=== PATIENT | female | born 1940 | race Caucasian/White ===

== ENCOUNTER 2017-12-22 11:46 | Inpatient (IN) ==
[2017-12-22 12:19] LABS: Baso # (Auto) 0.1 th/mm3 (0.0-0.2); Baso % (Auto) 0.5 % (0.0-2.0); Eos # (Auto) 0.1 th/mm3 (0.0-0.4); Eos % (Auto) 0.7 % (0.0-4.0); Hematocrit 39.7 % (35.0-46.0); Hemoglobin 12.7 gm/dL (11.6-15.3); Lymph # (Auto) 1.5 th/mm3 (1.0-4.8); Mean Corpuscular Volume 93.8 fL (80.0-100.0); Mean Platelet Volume 10.1 fL (7.0-11.0); Mono # (Auto) 0.4 th/mm3 (0.0-0.9); Mono % (Auto) 3.9 % (0.0-8.0); Neut # (Auto) 8.9 th/mm3 (1.8-7.7); Neut % (Auto) 80.9 % (16.0-70.0); Platelet Count 265 th/mm3 (150-450); Red Blood Count 4.23 mil/mm3 (4.00-5.30); Red Cell Distribution Width 14.1 % (11.6-17.2)
[2017-12-22 12:35] LABS: Activated Partial Thrombo Time 25.2 sec (24.3-30.1); Prothrombin Time 10.2 sec (9.8-11.6)
[2017-12-22 12:36] LABS: Calcium 8.4 mg/dL (8.5-10.1); Carbon Dioxide 27.8 meq/L (21.0-32.0); Potassium 4.4 meq/L (3.5-5.1)
--- NOTE | 2017-12-22 12:51 | XR ---
EXAM DATE: 12/22/2017 12:49 PM EDT AGE/SEX: 89 years / Female INDICATIONS: Trauma. CLINICAL DATA: This is the patient's initial encounter. Patient reports that signs and symptoms have been present for 1 day and indicates a pain score of Nonresponsive. MEDICAL/SURGICAL HISTORY: Non-responsive. Non-responsive. COMPARISON: No prior exams available for comparison. FINDINGS: A single AP view of the chest demonstrates the lungs to be symmetrically aerated without evidence of mass, infiltrate or effusion. The cardiomediastinal contours are unremarkable. Osseous structures a re intact. CONCLUSION: Negative examination. Electronically signed by: Samson Griffin MD 12/22/2017 12:50 PM EDT
--- NOTE | 2017-12-22 12:57 | ED ---
HPI General Chief Complaint: Fall Stated Complaint: Fall Time Seen by Provider: 12/22/17 11:57 Source: patient, EMS, RN notes reviewed and old records reviewed Mode of arrival: EMS Limitations: other (dementia) History of Present Illness HPI Narrative: Patient presents by ambulance with history of dementia and underlying GCS of 14 on hospice after she had a fall [place]. She did not hit her head or blackout. She has a large hematoma to that area and was hypotensive in route. Patient denies any complaints but is a very poor historian. complaint: fall Onset (ago): hour(s) Fall from: standing Fall witnessed: yes, by family Place fall occurred: home Loss of consciousness: none Prolonged down time: no Symptoms prior to fall: none Location of injury: back Related Data Allergies Allergy/AdvReac Type Severity Reaction Status Date / Time Penicillins Allergy Unknown unknown Verified 12/22/17 11:58 Review of Systems ROS Unobtainable ROS Unobtainable: other (dementia, poor historian) FOR[facility]LY [facility] Medical History Medical History Alzheimer disease (Acute) Hypothyroidism (Acute) Surgical History Surgical History History of splenectomy (Acute) Social History Social History Substance History: Unable to Obtain Smoking Status: Unknown if ever smoked How Often Do You Have a Drink Containing Alcohol: Unable to Obtain Recent Travel in [facility] within the Last 8 Weeks: No Recent Out of Country Travel within the Last 8 Weeks: No Immunization History Tetanus Immunization: Unable to Assess Hx Influenza Vaccine This Season: Unable to Assess Exam Narrative Exam Narrative: GENERAL: in no apparent distress SKIN: Focused skin assessment warm/dry. HEAD: Atraumatic. Normocephalic. EYES: Pupils equal and round. No scleral icterus. No injection or drainage. ENT: No nasal bleeding or discharge. Mucous membranes pink and moist. NECK: Trachea midline. CARDIOVASCULAR: Regular rate and rhythm. RESPIRATORY: No accessory muscle use. Clear to auscultation. Breath sounds equal bilaterally. GASTROINTESTINAL: Abdomen soft, non-tender, nondistended. MUSCULOSKELETAL: No obvious deformities. No clubbing. No cyanosis. NEUROLOGICAL: Awake. moves all extremities. Normal speech. Back: To left flank area there is a large hematoma noted, no midline pain Course Reevaluation(s) Reevaluation #1: on recheck vitals stable, will discuss with trauma surgery Reevaluation #2: patient's at bedside and states that he wants her observed in the hospital and have her hemoglobins monitored. Consultations Consultation #1: dr belle will see patient Consultation #2: dr belle states to admit to icu for monitoring, no IR at this time Initial Documented Vital Signs Temperature 97.6 F 12/22/17 11:52 Pulse Rate 71 12/22/17 11:52 Respiratory Rate 18 12/22/17 11:52 Blood Pressure 137/65 12/22/17 11:52 Pulse Oximetry 92 L 12/22/17 11:52 Last Documented Vital Signs Temperature 97.6 F 12/22/17 12:00 Pulse Rate 71 12/22/17 12:00 Respiratory Rate 18 12/22/17 12:00 Blood Pressure 137/65 12/22/17 12:00 Pulse Oximetry 92 L 12/22/17 12:00 Medical Decision Making MDM Narrative Medical decision making narrative: Will check blood work and imaging to rule out other process and reevaluate Medical Screen Exam Complete: Yes Emergency Medical Condition: Yes Differential Diagnosis Differential Diagnosis: Hematoma, fracture, pneumothorax Lab Data Lab results reviewed: Yes I reviewed the patient's lab results. Result diagrams: 12/22/17 12:05 12/22/17 12:05 Lab Results 12/22/17 12/22/17 12/22/17 Range/Units 12:05 12:05 12:05 WBC 11.0 (4.0-11.0) th/mm3 RBC 4.23 (4.00-5.30) mil/mm3 Hgb 12.7 (11.6-15.3) gm/dL Hct 39.7 (35.0-46.0) % MCV 93.8 (80.0-100.0) fL MCH 30.0 (27.0-34.0) pg MCHC 32.0 (32.0-36.0) % RDW 14.1 (11.6-17.2) % Plt Count 265 (150-450) th/mm3 MPV 10.1 (7.0-11.0) fL Neut % (Auto) 80.9 H (16.0-70.0) % Lymph % (Auto) 14.0 (9.0-44.0) % [place] % (Auto) 3.9 (0.0-8.0) % Eos % (Auto) 0.7 (0.0-4.0) % Baso % (Auto) 0.5 (0.0-2.0) % Neut # (Auto) 8.9 H (1.8-7.7) th/mm3 Lymph # (Auto) 1.5 (1.0-4.8) th/mm3 [place] # (Auto) 0.4 (0.0-0.9) th/mm3 Eos # (Auto) 0.1 (0.0-0.4) th/mm3 Baso # (Auto) 0.1 (0.0-0.2) th/mm3 WBC Differential . Differential Comment Auto diff final PT 10.2 (9.8-11.6) sec INR 1.0 Ratio APTT 25.2 (24.3-30.1) sec Sodium 145 (136-145) meq/L Potassium 4.4 (3.5-5.1) meq/L Chloride 109 H (98-107) meq/L Carbon Dioxide 27.8 (21.0-32.0) meq/L Anion Gap 8 (5-15) meq/L BUN 19 H (7-18) mg/dL Creatinine 1.05 H (0.50-1.00) mg/dL Estimated GFR 45 L (>89) mL/min Random Glucose 160 H (74-106) mg/dL Calcium 8.4 L (8.5-10.1) mg/dL Blood Type Antibody Screen 12/22/17 Range/Units 12:35 WBC (4.0-11.0) th/mm3 RBC (4.00-5.30) mil/mm3 Hgb (11.6-15.3) gm/dL Hct (35.0-46.0) % MCV (80.0-100.0) fL MCH (27.0-34.0) pg MCHC (32.0-36.0) % RDW (11.6-17.2) % Plt Count (150-450) th/mm3 MPV (7.0-11.0) fL Neut % (Auto) (16.0-70.0) % Lymph % (Auto) (9.0-44.0) % [place] % (Auto) (0.0-8.0) % Eos % (Auto) (0.0-4.0) % Baso % (Auto) (0.0-2.0) % Neut # (Auto) (1.8-7.7) th/mm3 Lymph # (Auto) (1.0-4.8) th/mm3 [place] # (Auto) (0.0-0.9) th/mm3 Eos # (Auto) (0.0-0.4) th/mm3 Baso # (Auto) (0.0-0.2) th/mm3 WBC Differential Differential Comment PT (9.8-11.6) sec INR Ratio APTT (24.3-30.1) sec Sodium (136-145) meq/L Potassium (3.5-5.1) meq/L Chloride (98-107) meq/L Carbon Dioxide (21.0-32.0) meq/L Anion Gap (5-15) meq/L BUN (7-18) mg/dL Creatinine (0.50-1.00) mg/dL Estimated GFR (>89) mL/min Random Glucose (74-106) mg/dL Calcium (8.5-10.1) mg/dL Blood Type O Positive Antibody Screen Negative Imaging Data Attestation: I personally reviewed and interpreted this imaging study as follows : Radiologist's impression: Abdomen/Pelvis CT 12/22/17 11:58 CONCLUSION: 1. Flank subcutaneous hematoma with surrounding edema, and active contrast extravasation within the hematoma noted. 2. Hiatal hernia. 3. Diverticulosis. 4. Fat and small bowel containing umbilical hernia. Chest X-Ray 12/22/17 11:58 CONCLUSION: Negative examination. Chest CT 12/22/17 11:59 CONCLUSION: 1. Small pericardial effusion and mild dependent atelectasis at the left lung base. Discharge Plan Discharge Disposition Patient Disposition: 30 Still Patient Discharge Condition Condition: Stable Discharge Details Diagnosis: Hematoma of flank Physicians Team ED Provider: Millie Silva Primary Care Provider: Misty Feliz Interventions Interventions: Vital Signs Last Done: 12/22/17 12:00 Status ED Status: Admitted Patient
--- NOTE | 2017-12-22 13:25 | CT ---
EXAM DATE: 12/22/2017 1:15 PM EDT AGE/SEX: 89 years / Female INDICATIONS: Trauma, fall. Hematoma to left lower back. CLINICAL DATA: This is the patient's initial encounter. Patient reports that signs and symptoms have been present for 1 day and indicates a pain score of 4/10. MEDICAL/SURGICAL HISTORY: Alzheimer's disease. Hypothyroidism. Splenectomy. ORAL CONTRAST: No oral contrast ingested. RADIATION DOSE: 20.27 CTDI (mGy) ; Combined studies COMPARISON: No prior exams available for comparison. TECHNIQUE: Multiple contiguous axial images were obtained through the abdomen and pelvis following b olus infusion of 95 ml Omnipaque 350 (iohexol) nonionic water-soluble contrast as a cumulative dose for multiple exams. No oral contrast ingested. Using automated exposure control and adjustment of t he mA and/or kV according to patient size, radiation dose was kept as low as reasonably achievable to obtain optimal diagnostic quality images. DICOM format image data is available electronically for r eview and comparison. FINDINGS: No pleural or pericardial effusions are seen. Small hiatal hernia. Liver, gallbladder, adrenal glands are within normal limits. Patient has a history of splenectomy, with a regenerative nodule in the le ft upper quadrant measuring 2.7 cm. Lung bases are clear. The osseous structures demonstrate degenera tive changes of the spine. There is a umbilical hernia containing fat and small bowel loops. Urinary bladder is unremarkable. The patient is status post hysterectomy. There is moderate diverticulosis of the sigmoid and descending colon. There is a hematoma with active contrast extravasation the left fl ank subcutaneous fat with surrounding edema, posterior to the midpole level of the left kidney. The h ematoma measures 10.9 x 5.6 cm in transverse and AP dimension. CONCLUSION: 1. Flank subcutaneous hematoma with surrounding edema, and active contrast extravasation within the hematoma noted. 2. Hiatal hernia. 3. Diverticulosis. 4. Fat and small bowel containing umbilical hernia. Electronically signed by: Ezekiel Lr MD 12/22/2017 1:23 PM EDT
--- NOTE | 2017-12-22 13:27 | CT ---
EXAM DATE: 12/22/2017 1:17 PM EDT AGE/SEX: 89 years / Female INDICATIONS: Trauma, fall. Hematoma to left lower back. CLINICAL DATA: This is the patient's initial encounter. Patient reports that signs and symptoms have been present for 1 day and indicates a pain score of 4/10. MEDICAL/SURGICAL HISTORY: Alzheimer's disease. Hypothyroidism. Splenectomy. RADIATION DOSE: 20.27 CTDI (mGy) ; Combined studies [place] [facility] [place] [facility] [place]EL[place]AST[place] 12/22/2017. . TECHNIQUE: Multiple contiguous axial images were obtained through the chest during bolus infusion of 95 ml Omnipaque 350 (iohexol) nonionic water-soluble contrast as a cumulative dose for multiple exa ms. Images were obtained in suspended respiration using multiple row detector helical technique. U sing automated exposure control and adjustment of the mA and/or kV according to patient size, radiati on dose was kept as low as reasonably achievable to obtain optimal diagnostic quality images. DICOM format image data is available electronically for review and comparison. FINDINGS: The lungs are clear. Review of bone windows demonstrate degenerative changes of the spine. A small pe ricardial effusion is present. No pleural effusion. There is atelectasis seen at the left lung base. Small hiatal hernia. CONCLUSION: 1. Small pericardial effusion and mild dependent atelectasis at the left lung base. Electronically signed by: Ezekiel Lr MD 12/22/2017 1:26 PM EDT
[2017-12-22] MEDS ORDERED: Morphine Sulfate Inj 2 MG/ML Vial IV.PUSH PRN (14:28)
--- NOTE | 2017-12-22 14:57 | P.HPGS ---
History of Present Illness Primary Care Physician: Misty Feliz MD History of Present Illness: 87 y.o female with baseline dementia on hospice care-fell and hurt her left flank-she has a large hematoma with active extravasation-she is hemodynamically normal,neuro intact. Inpatient Certification: I certify that the inpatient services were ordered in accordance with Medicare regulations governing the order. This includes certification that hospital inpatient services are reasonable and necessary and in the case of services not specified as inpatient-only under 42 CFR 419.22(n), that they are appropriately provided as inpatient services in accordance to with the 2-midnight benchmark under 43 CFR 412.3(e) Estimated Total Length of Stay (Days): 2 Plans for Post Hospital Care: Home Review of Systems All other systems reviewed negative except as stated in HPI PMFSH - History History Provided By: Split [employer]ather Department Supervisor / EMT - Medical History Medical History: Medical History (Last Reviewed 12/22/17 @ 12:56 by Millie Silva MD) Alzheimer disease Hypothyroidism - Surgical History Surgical History: Surgical History (Last Reviewed 12/22/17 @ 12:56 by Millie Silva MD) History of splenectomy - Tobacco History Smoking Status: Unknown if ever smoked - Alcohol History How Often Do You Have a Drink Containing Alcohol: Unable to Obtain - Substance Use History Substance History: Unable to Obtain - Travel History Recent Travel in the [place] Within the Last 8 Weeks: No Recent Travel Out of the Country Within the Last 8 Weeks: No - Immunization History Tetanus Immunization: Unable to Assess Hx Influenza Vaccine This Season: Unable to Assess Medications and Allergies Active Medications: Active Medications Chlorhexidine Gluconate (Chlorhexidine 2% Cloth) 3 pack TOPICAL DAILY@0400 GAY Stop: 12/28/17 03:59 Chlorhexidine Gluconate (Chlorhexidine 2% Cloth) 3 pack TOPICAL DAILY@0400 PRN PRN Reason: Extra cloth needed Stop: 12/28/17 03:59 Sodium Chloride (Ns Inj) 1,000 mls @ 84 mls/hr IV.CONT .[id number] GAY Morphine Sulfate (Morphine Inj) 2 mg IV.PUSH Q3H PRN PRN Reason: PAIN SCALE 6 TO 10 Ondansetron HCl (Zofran Inj) 4 mg IV.PUSH Q6H PRN PRN Reason: NAUSEA OR VOMITING Senna/Docusate Sodium (Esha-Colace) 1 tab PO BID GAY Sodium Chloride (Ns Flush) 2 ml IV.FLUSH PRN PRN PRN Reason: FLUSH AFTER USING IV ACCESS Sodium Chloride (Ns Flush) 2 ml IV.FLUSH BID GAY Sodium Chloride (Ns Flush) 2 ml IV.FLUSH PRN PRN PRN Reason: FLUSH AFTER USING IV ACCESS Allergies Allergy/AdvReac Type Severity Reaction Status Date / Time Penicillins Allergy Unknown unknown Verified 12/22/17 11:58 Exam Vital signs: Vital Signs 12/22/17 11:52 12/22/17 12:00 Temperature 97.6 F 97.6 F Pulse Rate 71 71 Respiratory Rate 18 18 Blood Pressure 137/65 137/65 Pulse Oximetry 92 L 92 L Intake & Output 12/21/17 12/22/17 12/22/17 18:59 06:59 18:59 Weight 81.647 kg - Constitutional no acute distress - Routine HEENT Exam Head: Present: normocephalic, atraumatic Eye: Present: EOMI, PERRL ENT: Present: mucous membranes moist, oropharynx clear - Routine Neck Exam Present: supple, full ROM - Routine Respiratory Exam Present: CTA bilaterally - Routine Cardiovascular Exam Present: RRR - Routine Abdominal Exam Present: soft, normoactive bowel sounds Comments: left flank hematoma about 10x10 cm - Routine Extremities Exam Present: full ROM, pulses intact - Routine Neurological Exam Present: alert, altered mental status, moving all extremities Caprini VTE Risk Assessment Caprini VTE Risk Assessment: Moderate/High Risk (score >= 2) (active bleeding) Caprini Risk Assessment Model: Point Value = 1 Point Value = 2 Point Value = 3 Point Value = 5 Age 41-60 Minor surgery BMI > 25 kg/m2 Swollen legs Varicose veins or History of unexplained or recurrent spontaneous Oral contraceptives or hormone replacement Sepsis (< 1 month) Serious lung disease, including pneumonia (< 1 month) Abnormal pulmonary function Acute myocardial infarction Congestive heart failure (< 1 month) History of inflammatory bowel disease Medical patient at bed rest Age 61-74 Arthroscopic surgery Major open surgery (> 45 min) Laparoscopic surgery (> 45 min) Malignancy Confined to bed (> 72 hours) Immobilizing plaster cast Central venous access Age >= 75 History of VTE Family history of VTE Factor V Leiden Prothrombin [id number] Lupus anticoagulant Anticardiolipin antibodies Elevated serum homocysteine Heparin-induced thrombocytopenia Other congenital or acquired thrombophilia Stroke (< 1 month) Elective arthroplasty Hip, pelvis, or leg fracture Acute spinal cord injury (< 1 month) Prophylaxis Regimen: Total Risk Factor Score Risk Level Prophylaxis Regimen 0-1 Low Early ambulation 2 Moderate Order ONE of the following: *Sequential Compression Device (SCD) *Heparin 5000 units SQ BID 3-4 Higher Order ONE of the following medications: *Heparin 5000 units SQ TID *Enoxaparin/Lovenox 40 mg SQ daily (WT < 150 kg, CrCl > 30 mL/min) *Enoxaparin/Lovenox 30 mg SQ daily (WT < 150 kg, CrCl > 10-29 mL/min) *Enoxaparin/Lovenox 30 mg SQ BID (WT < 150 kg, CrCl > 30 mL/min) AND/OR *Sequential Compression Device (SCD) 5 or more Highest Order ONE of the following medications: *Heparin 5000 units SQ TID (Preferred with Epidurals) *Enoxaparin/Lovenox 40 mg SQ daily (WT < 150 kg, CrCl > 30 mL/min) *Enoxaparin/Lovenox 30 mg SQ daily (WT < 150 kg, CrCl > 10-29 mL/min) *Enoxaparin/Lovenox 30 mg SQ BID (WT < 150 kg, CrCl > 30 mL/min) AND *Sequential Compression Device (SCD) Assessment and Plan - Plan left flank soft tissue hematoma with active bleeding admit to [facility] cbc abdominal binder
[2017-12-22] MEDS: Sod Chloride 0.9% Inj 1,000 ML IV.CONT SCH (18:52)
[2017-12-22] MEDS: Senna/Docusate Sodium 8.6/50 MG Tablet PO SCH (21:00)
[2017-12-22 21:56] LABS: Hematocrit 31.1 % (35.0-46.0); Hemoglobin 10.6 gm/dL (11.6-15.3); Mean Corpuscular HGB Conc 34.1 % (32.0-36.0); Platelet Count 238 th/mm3 (150-450); Red Blood Count 3.42 mil/mm3 (4.00-5.30); Red Cell Distribution Width 13.9 % (11.6-17.2); White Blood Count 9.5 th/mm3 (4.0-11.0)
[2017-12-23] MEDS ORDERED: Chlorhexidine Gluconate 2% 1 Pack (2 Cloths) TOPICAL PRN (04:00)
[2017-12-23] MEDS ORDERED: Chlorhexidine Gluconate 2% 1 Pack (2 Cloths) TOPICAL SCH (04:00)
[2017-12-23] MEDS: Sod Chloride 0.9% Inj 1,000 ML IV.CONT SCH (04:43)
[2017-12-23 05:38] LABS: Baso # (Auto) 0.1 th/mm3 (0.0-0.2); Baso % (Auto) 0.7 % (0.0-2.0); Eos % (Auto) 0.1 % (0.0-4.0); Hemoglobin 10.1 gm/dL (11.6-15.3); Lymph # (Auto) 2.5 th/mm3 (1.0-4.8); Lymph % (Auto) 30.7 % (9.0-44.0); Mean Corpuscular HGB Conc 33.6 % (32.0-36.0); Mean Corpuscular Hemoglobin 30.7 pg (27.0-34.0); Mean Corpuscular Volume 91.2 fL (80.0-100.0); Mean Platelet Volume 10.4 fL (7.0-11.0); Mono # (Auto) 0.8 th/mm3 (0.0-0.9); Mono % (Auto) 9.3 % (0.0-8.0); Neut # (Auto) 4.8 th/mm3 (1.8-7.7); Neut % (Auto) 59.2 % (16.0-70.0); Platelet Count 219 th/mm3 (150-450); Red Blood Count 3.29 mil/mm3 (4.00-5.30); Red Cell Distribution Width 13.9 % (11.6-17.2); White Blood Count 8.1 th/mm3 (4.0-11.0)
[2017-12-23 05:58] LABS: Calcium 7.6 mg/dL (8.5-10.1); Carbon Dioxide 24.6 meq/L (21.0-32.0); Potassium 4.1 meq/L (3.5-5.1)
[2017-12-23] MEDS ORDERED: Acetaminophen 325 MG Tablet PO PRN (06:32)
[2017-12-23] MEDS ORDERED: Non-Formulary Drug (Coenzyme Q10 [Co Q-10] 200 MG) PO SCH (09:00)
[2017-12-23] MEDS ORDERED: Citalopram 20 MG Tablet PO SCH (09:00)
[2017-12-23] MEDS ORDERED: Levothyroxine 50 MCG Tablet PO SCH (09:00)
[2017-12-23] MEDS: Senna/Docusate Sodium 8.6/50 MG Tablet PO SCH (09:58)
--- NOTE | 2017-12-23 11:27 | P.DS ---
Date of admission: 12/22/17 14:24 Primary care physician: Misty Feliz MD Brief History from admission: 87 y.o female with baseline dementia on hospice care-fell and hurt her left flank-she has a large hematoma with active extravasation-she is hemodynamically normal,neuro intact. DS: Diagnosis - Discharge Diagnosis (1) Fall Status: Acute (2) Hematoma of flank Status: Acute DS: Summary Hospital Course: INJURIES: LEFT flank hematoma w/ active bleeding PMHx: Dementia- on hospice, hypothyroidism LEFT flank hematoma Supportive care Hgb stable Pain control Clear to DC back home with daily Hospice care Plan of care d/w at bedside. agreeable to take patient back home today with Hospice. Hospice consulted. Collaborating Trauma MD agrees with plan. Patient is clear from Trauma surgery standpoint to safely DC home with hospice. - Time Spent with Patient Total time spent providing and/or coordinating discharge services: Greater than 30 minutes - Quality: VTE Deep Vein Thrombosis/Pulmonary Embolism Present on Admission: No Exam Vital signs: Vital Signs 12/22/17 11:52 12/22/17 12:00 12/22/17 18:53 Temperature 97.6 F 97.6 F Pulse Rate 71 71 98 H Respiratory Rate 18 18 18 Blood Pressure 137/65 137/65 141/67 H Pulse Oximetry 92 L 92 L 12/22/17 21:30 12/23/17 00:30 12/23/17 03:30 Temperature Pulse Rate 90 90 86 Respiratory Rate 16 16 16 Blood Pressure 143/63 H 134/67 144/77 H Pulse Oximetry 96 95 95 12/23/17 06:09 12/23/17 06:45 12/23/17 08:00 Temperature 98.6 F 99.1 F Pulse Rate 84 80 82 Respiratory Rate 14 18 Blood Pressure 136/74 171/72 H 161/79 H Pulse Oximetry 94 L 94 L 95 12/23/17 09:00 12/23/17 10:00 Temperature Pulse Rate 84 87 Respiratory Rate Blood Pressure Pulse Oximetry Intake & Output 12/22/17 12/23/17 12/23/17 18:59 06:59 18:59 Intake Total 1000 / 1000 Balance 1000 / 1000 Weight 81.647 kg 81.64 kg Intake: IV 1000 / 1000 NS Inj 1,000 ML @ 84 mls/hr IV. 1000 / 1000 CONT .[id number] [facility] Rx#:[id number] Other: Weight On Admission 81.64 kg Narrative: GENERAL: Adult confused female lying in bed in no acute distress. SKIN: Warm and dry. LEFT flank hematoma noted, tender to palpation. HEAD: Normocephalic. EYES: Pupils equal and round. No scleral icterus. ENT: No nasal bleeding or discharge. Mucous membranes pink and moist. NECK: Trachea midline. No JVD. CARDIOVASCULAR: Regular rate and rhythm. RESPIRATORY: No accessory muscle use. Lungs clear to auscultation. Breath sounds equal bilaterally. On RA. GASTROINTESTINAL: Abdomen soft, non-tender, nondistended. + BS. MUSCULOSKELETAL: Extremities without cyanosis, or edema. MAEW, + perfused NEUROLOGICAL: Alert and confused. Normal speech. Results Procedures completed during hospitalization: . Labs on day of discharge: Labs from last 24 hours 12/23/17 12/23/17 12/23/17 06:30 05:05 05:05 WBC 8.1 RBC 3.29 L Hgb 10.1 L Hct 30.0 L MCV 91.2 MCH 30.7 MCHC 33.6 RDW 13.9 Plt Count 219 MPV 10.4 Neut % (Auto) 59.2 Lymph % (Auto) 30.7 [place] % (Auto) 9.3 H Eos % (Auto) 0.1 Baso % (Auto) 0.7 Neut # (Auto) 4.8 Lymph # (Auto) 2.5 [place] # (Auto) 0.8 Eos # (Auto) 0.0 Baso # (Auto) 0.1 WBC Differential . Differential Comment Auto diff final PT INR APTT Sodium 146 H Potassium 4.1 Chloride 110 H Carbon Dioxide 24.6 Anion Gap 11 BUN 18 Creatinine 1.06 H Estimated GFR 45 L Random Glucose 128 H Calcium 7.6 L D Nasal Screen MRSA (PCR) Pending Blood Type Antibody Screen 12/22/17 12/22/17 12/22/17 21:50 12:35 12:05 WBC 9.5 RBC 3.42 L Hgb 10.6 L D Hct 31.1 L MCV 91.0 MCH 31.0 MCHC 34.1 RDW 13.9 Plt Count 238 MPV 10.0 Neut % (Auto) Lymph % (Auto) [place] % (Auto) Eos % (Auto) Baso % (Auto) Neut # (Auto) Lymph # (Auto) [place] # (Auto) Eos # (Auto) Baso # (Auto) WBC Differential Differential Comment PT INR APTT Sodium 145 Potassium 4.4 Chloride 109 H Carbon Dioxide 27.8 Anion Gap 8 BUN 19 H Creatinine 1.05 H Estimated GFR 45 L Random Glucose 160 H Calcium 8.4 L Nasal Screen MRSA (PCR) Blood Type O Positive Antibody Screen Negative 12/22/17 12/22/17 12:05 12:05 WBC 11.0 RBC 4.23 Hgb 12.7 Hct 39.7 MCV 93.8 MCH 30.0 MCHC 32.0 RDW 14.1 Plt Count 265 MPV 10.1 Neut % (Auto) 80.9 H Lymph % (Auto) 14.0 [place] % (Auto) 3.9 Eos % (Auto) 0.7 Baso % (Auto) 0.5 Neut # (Auto) 8.9 H Lymph # (Auto) 1.5 [place] # (Auto) 0.4 Eos # (Auto) 0.1 Baso # (Auto) 0.1 WBC Differential . Differential Comment Auto diff final PT 10.2 INR 1.0 APTT 25.2 Sodium Potassium Chloride Carbon Dioxide Anion Gap BUN Creatinine Estimated GFR Random Glucose Calcium Nasal Screen MRSA (PCR) Blood Type Antibody Screen - Impressions ITS Impressions Abdomen/Pelvis CT 12/22/17 11:58 CONCLUSION: 1. Flank subcutaneous hematoma with surrounding edema, and active contrast extravasation within the hematoma noted. 2. Hiatal hernia. 3. Diverticulosis. 4. Fat and small bowel containing umbilical hernia. Chest X-Ray 12/22/17 11:58 CONCLUSION: Negative examination. Chest CT 12/22/17 11:59 CONCLUSION: 1. Small pericardial effusion and mild dependent atelectasis at the left lung base. Discharge Plan - Discharge Disposition Patient Disposition: 50 Hospice/Home - Discharge Condition Condition: Stable - Discharge Order Discharge Orders: Discharge Order (Routine); Ordered 12/23/17 Ordered By: Mohan Johansen - Physicians Team Primary Care Provider: Misty Feliz Attending Provider: Yadira Richardson Other Providers: Sandro Reece MD ; Branden Rodriguez MD ; Systems, [employer] ; Felipe Gallegos MD ; Tash Quiros ARNP ; Senthil Cuellar MD ; Yadira Richardson MD ; Mohan Johansen ARNP ; Mireille Acevedo MD
== END 2017-12-23 14:13 | disposition hospice, home (50) ==
LOC: EDBD → NEPE 11:46 → NEDA 14:24 → NEDH 12-23 03:16 → N03 12-23 06:35
PROVIDERS: ADMIT Surgery Trauma Surgery; ATTEND Surgery Trauma Surgery